=== PATIENT | female | born 1960 | race Caucasian/White ===

== ENCOUNTER 2018-11-20 08:32 | Day surgery (SDC) | payer BC ==
--- NOTE | 2018-11-12 14:31 | HP ---
PREOPERATIVE HISTORY AND PHYSICAL: DATE OF ADMISSION/SURGERY: 11/20/18. DATE OF OFFICE VISIT: 11/12/18 ATTENDING SURGEON: Katlin Marks MD* (dictated by.ALETA Faith). PROCEDURE: Right knee arthroplasty, partial meniscectomy. CHIEF COMPLAINT: Right knee pain. HISTORY OF PRESENT ILLNESS: Ximena is a 57-year-old female who presents to the clinic for right knee pain due to a meniscus tear. She has failed conservative measures and therefore agreed to undergo a right knee arthroplasty with partial meniscectomy with Dr. Marks on 11/20/18. PAST MEDICAL HISTORY: Osteoarthritis. PAST SURGICAL HISTORY: 1. Hernia repair x2. 2. Carotid artery surgery. 3. Ganglion cyst from her hand. 4. . The patient denies prior complications with anesthesia. MEDICATIONS: 1. Vitamin C 500 mg 1 by mouth every day. 2. Vitamin D3 1000 two by mouth every day. 3. Calcium 600 mg 1 tab by mouth 2 times a day. 4. Fish oil 1000 mg 1 by mouth every day. 5. 1 daily. 6. Magnesium 300 mg once daily. 7. Aspercreme 16% apply as needed. 8. CoQ10 100 mg 1 by mouth every day. 9. [place]-3 1000 mg 1 by mouth every day. ALLERGIES: PENICILLIN, DOXYCYCLINE, SHRIMP. SOCIAL HISTORY: She denies tobacco use. She works as a language tutor. She reports occasional alcohol consumption. She is very active. She is left-hand dominant. FAMILY HISTORY: Positive for a brother with a DVT after a recent knee surgery. No one else in the family has a history of DVT or PE. REVIEW OF SYSTEMS: A 14-point review of systems was reviewed with the patient. Positive for current complaint, otherwise negative. Denies fevers, chills, chest pain, shortness of breath, history of DVT or PE, history of bleeding disorder. PHYSICAL EXAMINATION GENERAL: A 57-year-old well-developed, well-nourished female, in no acute distress. VITAL SIGNS: Height 68.5, weight 120, pulse 68, blood pressure 104/64, respiratory rate 18, BMI 18.0. HEENT: Normocephalic, atraumatic. PERRLA. Throat: Clear. NECK: Supple. PULMONARY: Lungs are clear to auscultation bilaterally. No wheezing, rhonchi, or rales. CARDIO: Regular rate and rhythm. S1, S2. No murmurs, gallops, or rubs. No edema. ABDOMEN: Positive bowel sounds, soft, nontender. NEURO: Alert and oriented x3. Cranial nerves grossly intact. MUSCULOSKELETAL: Right lower extremity, skin is intact. No warmth or erythema. Range of motion 0 to 130. Positive Rajeev. Tenderness over the lateral joint line. Stable to varus and valgus stress. Stable Nick, negative posterior drawer. Calves soft, nontender. +5/5 strength with dorsiflexion and plantar flexion. +2 DP pulse. Sensation is intact to light touch distally. DIAGNOSTIC STUDIES: MRI and x-ray revealed lateral meniscus tear with parameniscal cyst. There is a horizontal type tear with degenerative changes. IMPRESSION: Right knee lateral meniscus tear. PLAN: The patient has failed conservative measures and therefore agreed to undergo right knee arthroplasty, partial meniscectomy on 11/20/18. She will follow up in 10 to 14 days postop for followup and suture removal. Percocet will be used for postop pain management and Lovenox will be used for DVT prophylaxis since her brother has a history of recent DVT after knee surgery. ALETA FAITH [id number]/[facility] #: [id number] MTDD
[~2018-11-20 08:32] MED LIST: Buffered Lidocaine 1% SYRIN* 1 ML/SYRINGE INTRADERM ONE; Famotidine IV* 10 MG/ML 2 ML (20 mg) IV ONE; Lactated Ringers 1000 ML Bag* 1,000 ML IV SCH
[2018-11-20] MEDS ORDERED: ceFAZolin 2 GM in NS PREMIX(*) 2 GM/100 ML BAG IVPB ONE (09:11)
[2018-11-20] MEDS ORDERED: Famotidine IV* 10 MG/ML 2 ML (20 mg) ONE (09:11)
[2018-11-20] MEDS ORDERED: Buffered Lidocaine 1% SYRIN* 1 ML/SYRINGE INTRADERM ONE (09:11)
[2018-11-20] MEDS ORDERED: Midazolam* 1 MG/ML 5 ML VIAL (5 MG) ONE (09:20)
[2018-11-20] MEDS ORDERED: fentaNYL* 50 MCG/ML 2 ML VIAL (100 MCG VIAL) ONE (09:20)
[2018-11-20] MEDS ORDERED: Lidocaine 1% MPF wEPI 200,000* 30 ML SDV ONE (09:59)
[2018-11-20] MEDS ORDERED: ROPIVACAINE 5 MG/ML 30 ML BTL (0.5%) ONE (09:59)
[2018-11-20] MEDS ORDERED: Ropivacaine* 2 MG/ML 20 ML VIAL (0.2%) ONE (10:13)
[2018-11-20] MEDS ORDERED: Dexamethasone IV* 4 MG/ML 1 ML (4 MG) ONE (11:44)
[2018-11-20] MEDS ORDERED: Lidocaine 2% PF * 5 ML VIAL ONE (11:44)
[2018-11-20] MEDS ORDERED: Propofol* 10 MG/ML 20 ML BTL ONE (11:44)
[2018-11-20] MEDS ORDERED: DiMENhydriNATE IV* 50 MG/ML VIAL ONE (11:44)
[2018-11-20] MEDS ORDERED: Ketorolac INJ* 30 MG/ML 1 ML VIAL ONE (11:44)
[2018-11-20] MEDS ORDERED: Ondansetron INJ* 2 MG/ML VIAL ONE (11:44)
[2018-11-20] MEDS ORDERED: DiMENhydriNATE IV* 50 MG/ML VIAL IV PUSH PRN (12:21)
[2018-11-20] MEDS ORDERED: Naloxone* 0.4 MG/ML 1 ML VIAL IV PRN (12:21)
[2018-11-20] MEDS ORDERED: Acetaminophen TAB* 325 MG PO PRN (12:21)
[2018-11-20] MEDS ORDERED: oxyCODONE/Acetamin 5/325 MG* TAB ONE (12:53)
[2018-11-20 14:05] VITALS: BP 113/61
--- NOTE | 2018-11-21 09:35 | OP ---
CC: PCP OPERATIVE REPORT: DATE OF SURGERY: 11/20/18 DATE OF : 58 SURGEON: Katlin Marks MD ASSEMBLER CARDS AND ANNOUNCEMENTS: None available. ANESTHESIOLOGIST: Dr. Holman. ANESTHESIA: General. PRE-OP DIAGNOSIS: Lateral meniscus tear. POST-OP DIAGNOSIS: Lateral meniscus tear. OPERATIVE PROCEDURE: Right knee arthroscopy with partial lateral meniscectomy, as well as chondropla sty medial, synovectomy anterior, medial and lateral. COMPLICATIONS: None. ESTIMATED BLOOD LOSS: Minimal. INDICATIONS: Ximena Hunt is a 58-year-old female who has had persistent knee pain for sometime. She was hiking. She does have some mild arthritic type symptoms, which she had a lateral catching and l ocking, diagnosed with lateral meniscus tear. After extensive discussion of the risks and benefits of surgical treatment; risks included, but not limited to, bleeding, infection, damage to nerves, vesse ls, surrounding structures, wound nonhealing, persistent pain, she elected to proceed with surgical t reatment. DESCRIPTION OF PROCEDURE: The patient was greeted in the preoperative area by the attending surgeon. The correct extremity was marked and consent was confirmed. The patient was brought back to the ope rating suite where she was placed in the supine position on the operating table and underwent general anesthesia and LMA intubation, after which she was appropriately positioned in bed, lateral post was positioned. An unsterile tourniquet was placed high on the proximal thigh. The left leg was then p repped and draped in the usual sterile fashion beginning with chlorhexidine soap, scrub, and alcohol wipe and a final prep with ChloraPrep. After appropriate surgical pause indicating side, site, procedure, and administration of antibiotics, the left leg was intra-articularly injected with 0.1% lidocaine with epi. An 11 blade was used to m markus the anterolateral portal. The scope was then positioned into the joint. Anteromedial portal was made in an outside-in fashion using an 18-gauge needle for localization. Once the scope was placed i n the knee joint, there was abundant synovitis present anterior, medially and laterally. These were debrided back using damian. Care was taken to maintain hemostasis. ACL and PCL were intact. The p atellofemoral joint had minimal chondral changes with grade 1 changes. The lateral gutter and medial gutter were intact. The medial femoral condyle though had areas in the weightbearing zone of grade 2 and almost 3 changes. The medial meniscus was intact. The remainder of the medial femoral condyle outside the weightbearing zone had relatively normal cartilage; however, the area of weightbearing z one with one small area of proximal to that was about 5 mm x 5 mm. The femoral joint again had minim al chondral changes. The lateral compartment was examined. There was unstable meniscus tearing, whi ch was debrided back using damian and the biters. Care was taken to try to decompress the cyst that was present. The remainder of the meniscus remained intact. Once the partial meniscectomy was comp lete, the knee was thoroughly lavaged to removed any loose debris. The wound was then copiously irri gated with sterile saline. The portals were closed with 3-0 nylon. Sterile dressings were applied, as well as Cryo/Cuff. She was awoken from anesthesia and transferred to the PACU in stable condition . POSTOPERATIVE PLAN: She will be weightbearing as tolerated with crutches. She will be discharged on pain medications. She also has a family history of DVT, for which we will treat her with a short co urse of Margaritanox. We will see the patient back in 10 to 14 days. [id number]/[facility] #: [id number]
== END 2018-11-20 18:18 | disposition home or self-care (01) ==
LOC: OR 08:32
PROVIDERS: ATTEND Orthopaedic Surgery
DX: S83.281A Other tear of lateral meniscus, current injury, right knee, initial encounter (principal); M65.9 Synovitis and tenosynovitis, unspecified; M19.90 Unspecified osteoarthritis, unspecified site; Z88.0 Allergy status to penicillin; Z88.1 Allergy status to other antibiotic agents; Z91.013 Allergy to seafood; X58.XXXA Exposure to other specified factors, initial encounter
CPT/HCPCS: A9270-GY; J0690; J1100; J1240; J1885; J2001; J2250; J2405; J2704; J2795; J3010